=== PATIENT | female | born 1975 | race Caucasian/White ===

== ENCOUNTER 2023-02-22 02:36 | Emergency (ER) | payer MEDICAID ==
[~2023-02-22] VITALS: Ht 160 cm; Wt 65.0 kg
[2023-02-22 02:44] VITALS: O2SAT 97
[2023-02-22 03:27] LABS: BASOPHILS % 0.5 % (0.0-2.0); EOSINOPHILS % 0.1 % (0.0-5.0); HEMATOCRIT. 34.4 % (36.0-48.0); HEMOGLOBIN. 11.3 g/dL (12.0-16.0); LYMPHOCYTES % 19.3 % (20.0-50.0); MEAN CORPUSCULAR HEMOGLOBIN 28.1 pg (28.0-32.0); MEAN CORPUSCULAR VOLUME 85.1 fL (81.0-99.0); MONOCYTES % 6.9 % (2.0-8.0); NEUTROPHILS % 73.2 % (40.0-76.0); PLATELET 286 x1000/uL (130-400); RED BLOOD CELL COUNT 4.04 mill/uL (4.2-5.4); RED CELL DISTRIBUTION WIDTH 21.2 % (11.6-14.6); WHITE BLOOD COUNT 10.5 x1000/uL (4.5-11.0)
[2023-02-22 03:38] LABS: CALCIUM 8.2 mg/dL (8.5-10.1); CHLORIDE 105 mEq/L (98-107); INDEX HEMOLYSI 1 (1-3); INDEX ICTERIC 1 (1-4); INDEX LIPEMIC 1 (1-3); POTASSIUM 3.2 mEq/L (3.5-5.1); SODIUM 138 mEq/L (136-145)
[2023-02-22 03:41] LABS: HCG SCREEN NEGATIVE
[2023-02-22 03:45] LABS: ACETAMINOPHEN < 2 ug/mL (10-30); CARBON DIOXIDE 24 mEq/L (21-32); CREATININE 0.5 mg/dL (0.6-1.3); ETHANOL BLOOD 28 mg/dL (-10); GLUCOSE 97 mg/dL (70-105); UREA NITROGEN BLOOD 16 mg/dL (7-21)
[2023-02-22 04:23] LABS: CLARITY URINE CLOUDY (CLEAR); COLOR URINE YELLOW (YELLOW); GLUCOSE URINE NEGATIVE (NEGATIVE); KETONES URINE TRACE (NEGATIVE); LEUKOCYTE ESTERASE URINE 1+ (NEGATIVE); NITRITE URINE NEGATIVE (NEGATIVE); OCCULT BLOOD URINE NEGATIVE (NEGATIVE); PH URINE 5.5 (4.5-8.0); PROTEIN URINE 1+ (NEGATIVE); SPECIFIC GRAVITY URINE 1.032 (1.005-1.030)
[2023-02-22 04:41] LABS: *BARBITURATES SCREEN URINE NEGATIVE (NEGATIVE); *BENZODIAZEPINES SCREEN URINE NEGATIVE (NEGATIVE); *COCAINE SCREEN URINE NEGATIVE (NEGATIVE); CANNABINOID URINE SCREEN NEGATIVE (NEGATIVE); METHADONE URINE SCREEN NEGATIVE (NEGATIVE); OPIATES URINE SCREEN NEGATIVE (NEGATIVE); PHENCYCLIDINE URINE SCREEN NEGATIVE (NEGATIVE)
[2023-02-22 05:29] LABS: *AMPHETAMINES SCREEN URINE PRESUMTIVE POSITIVE (NEGATIVE); ECSTASY MDMA SCREEN URINE CONF.TEST INDICATED (NEGATIVE)
[2023-02-22] MEDS ORDERED: LORAZEPAM 1MG TABLET PO NR (06:00)
[2023-02-22] MEDS ORDERED: POTASSIUM CHLORIDE 20MEQ/PACKET PO NR (06:00)
[2023-02-22 07:38] LABS: SQUAMOUS EPITHELIAL CELL URINE 1+ /lpf (RARE/1+)
[2023-02-22 07:39] LABS: RBC URINE 0-2 /hpf (0-2); WBC URINE 0-2 /hpf (0-2)
[2023-02-22 07:40] LABS: AMORPHOUS SEDIMENT URINE 1+ /lpf; BACTERIA URINE NONE SEEN
[2023-02-22] MEDS ORDERED: DIPHENHYDRAMINE 50MG CAPSULE PO ONE ×2 (16:15→23:00)
[2023-02-22] MEDS ORDERED: DIPHENHYDRAMINE 25MG CAPSULE PO NR ×2 (17:00→22:55)
[2023-02-22] MEDS ORDERED: LORAZEPAM 1MG TABLET PO ONE (23:00)
[2023-02-22] MEDS ORDERED: ZIPRASIDONE HCL 20MG CAPSULE PO ONE (23:00)
[2023-02-23] MEDS ORDERED: QUETIAPINE FUMARATE 50MG TABLET PO SCH (10:15)
[2023-02-23] MEDS ORDERED: LORAZEPAM 1MG TABLET PO ONE (16:15)
[2023-02-23 17:35] VITALS: BP 113/90; PULSE 94; RESP 18; TEMP 98.3
== END 2023-02-23 18:17 ==
LOC: ER 02:36
DX: R45.851 Suicidal ideations (principal); F10.229 Alcohol dependence with intoxication, unspecified; F41.9 Anxiety disorder, unspecified; F32.9 Major depressive disorder, single episode, unspecified; F20.9 Schizophrenia, unspecified; F17.200 Nicotine dependence, unspecified, uncomplicated; Z20.822 Contact with and (suspected) exposure to COVID-19
CPT/HCPCS: 80305; 80048; 81003; 81025; 80307; 80329; 80320; 84703; 85025; 36415; 99285; 87426; Q0163; C9803; Z7610; G0480